=== PATIENT | female | born 1960 | race Caucasian/White ===

== ENCOUNTER 2017-05-03 07:04 | Emergency (ER) | payer MEDICARE, MEDICAID ==
--- NOTE | 2017-05-03 07:37 | ED Physician Chart ---
ED Chief Complaint/HPI - Patient Information Date Seen:: 05/03/17 Time Seen:: 07:35 Chief Complaint:: RIGHT KNEE PAIN AFTER FALL 3 DAYS AGO. History of Present Illness:: THIS 56-YEAR-OLD FEMALE DEVELOPED PAIN IN HER RIGHT KNEE THREE DAYS AGO AFTER FALLING AND INJURING THE KNEE FOUR DAYS AGO. THE PAIN IS RATED 10 OVER 10 SEVERITY. AND IS MADE WORSE BY WEIGHT-BEARING. SHE HAS TRIED [id number] PAIN MEDICINES WITH NO RELIEF SHE DID NOT HEAR ANY SNAPS OR POPS AT THE TIME OF THE FALL.. SHE LOCALIZES THE PAIN TO THE AREA JUST BEYOND THE LOWER MARGIN OF THE PATELLA. Allergies:: Allergies Allergy/AdvReac Type Severity Reaction Status Date / Time No Known Allergies Allergy Verified 05/03/17 07:31 Vitals:: Vital Signs - 8 hr 05/03/17 07:31 Temp 98.3 F HR 96 RR 18 BP 98/57 O2 Sat % 96 Historian:: Patient Family MD/PCP:: : THIS 5 CAME TO THE EMERGENCY DEPARTMENT FOR KNEE PAIN THAT CAME ON THE DAY AFTER A FALL FOUR DAYS AGO. THE PAIN WAS LOCALIZED TO THE LOWER POLE OF THE PATELLA AND DID NOT RADIATE. THE PAIN WAS SEVERE AND RATED A 10 OVER 10 SEVERITY. ON PHYSICAL EXAMINATION THERE WAS NO EFFUSION IN THE REGION OF THE INJURY. NO BRUISING AND NO DEFORMITIES WERE NOTED. PATIENT HAD GOOD DISTAL PULSES AND SENSATION AND MOTOR FUNCTION WERE INTACT. X-RAYS OF THE KNEE SHOWED NO EVIDENCE OF ACUTE TRAUMA. THE KNEE WAS WRAPPED WITH A WILL BANDAGE FOR SUPPORT PATIENT WAS GIVEN A PRESCRIPTION FOR NORCO 7.5/325, DISPENSE 10 CAN USE UP TO EVERY SIX HOURS. SHE WAS PROVIDED WITH THE USUAL CAUTIONS REGARDING THE EXITING THE NORCO WITH ALCOHOL AND TAKING IT WITHIN SIX HOURS OF DRIVING OR ACTIVITIES REQUIRING ALERTNESS. PATIENT WAS STABLE UPON DISCHARGE AND FOLLOW-UP [facility] DDX DRAMATIC KNEE INJURY. NOT CLOSED FRACTURE BASED ON X-RAY STUDY. NOT OPEN FRACTURE BASED ON THE X-RAY AND PHYSICAL EXAMINATION. NOT POSTERIOR DISLOCATION OF THE KNEE BASED ON THE PATIENT'S HISTORY AND LACK OF SWELLING ON PHYSICAL EXAMINATION. NOT HIP FRACTURE BASED ON PHYSICAL EXAMINATION. Review:: Nurse's Note Reviewed ( NURSES TRIAGE NOTES RECORDED ON PAPER BY NURSING.) ED Review of Systems - Review of Systems General/Constitutional: No fever, No chills, No weight loss, No weakness, No diaphoresis, No edema, No loss of appetite Head: No headache, No light-headedness Eyes: Pain, No pain, No diplopia ED Past Medical History - Past Medical History Past Medical History: Other ( SCLERODERMA WITH ASSOCIATED PULMONARY HYPERTENSION. HYPERTENSION. PRIOR HISTORY OF-A FIB.) Social History: Non Smoker, No Alcohol, No Drug Use, , Employed Surgical History: Psychiatricy History: None Family Medical History - Family Member Mother Hx Family Cancer: Yes ED Physical Exam - Physical Examination General/Constitutional: Awake, Well-developed, well-nourished, Alert, No distress, GCS 15, Non-toxic appearing, Ambulatory Head: Atraumatic Eyes: Lids, conjuctiva normal, PERRL ( HORIZONTAL NYSTAGMUS WITH GAZE TO BOTH THE RIGHT AND THE LEFT. SCLERA ARE ANICTERIC.), EOMI ED Labs/Radiology/EKG Results - Lab Results Comments:: A TO VIEW X-RAY STUDY OF THE RIGHT KNEE SHOWED NO TIBIAL PLATEAU FRACTURE NO FRACTURE OF THE FEMUR AND NO FRACTURE OF THE PATELLA. THERE WAS NO SUBLUXATION OF THE PATELLA. NO RADIO OPAQUE FOREIGN BODIES NOTED ED Assessment - Assessment General Assessment: SHE WAS GIVEN THE USUAL PRECAUTIONS REGARDING MIXING THE NORCO WITH ALCOHOL AND NOT TO TAKE IT WITHIN SIX HOURS OF DRIVING HER ACTIVITIES REQUIRING ALERTNESS.: THIS 56-YEAR-OLD FEMALE PRESENTS COMPLAINING OF KNEE PAIN THAT BEGAN A DAY AFTER SHE HAD TAKEN A FALL FOUR DAYS AGO. SHE RATES THE SEVERITY OF THE PAIN A 10 OVER 10 AND SHE WAS BENAIAH UNABLE TO FIND ANY RELIEVING FACTORS INCLUDING [id number] PAIN MEDICATIONS. THE LOCATION OF THE PAIN IS JUST DISTAL TO THE LOWER MARGIN OF THE PATELLA AND HIS NONRADIATING. THERE IS MINIMAL IF ANY SWELLING OF THE KNEE ITSELF AND NO EFFUSION APPEARS TO BE PRESENT. DISTAL VASCULAR, MOTOR FUNCTION AND SENSATION ARE INTACT. A TWO-VIEW X- RAY OF THE RIGHT KNEE SHOWED NO FRACTURES AND NO EVIDENCE OF SUBLUXATION OR FOREIGN BODIES. IN THE EMERGENCY DEPARTMENT THE PATIENT RECEIVED NORCO 7.5/325 AND SHE WAS DISCHARGED WITH A PRESCRIPTION FOR 10 ADDITIONAL PAIN PILLS NORCO 7.5/325. SHE WAS TOLD TO TAKE ONE OR TWO CAPS UP TO EVERY SIX HOURS NEEDED FOR SEVERE PAIN. THE KNEE WAS WILL WRAPPED IN THE EMERGENCY DEPARTMENT AND SHE WAS ADVISED TO FOLLOW UP WITH HER PRIMARY CARE PHYSICIAN THIS COMING WEEK. SHE WAS FURTHER REVISED RETURN TO THE EMERGENCY DEPARTMENT FOR ANY SIGNIFICANT INCREASE IN PAIN, SWELLING OR INSTABILITY. MDMfor ACUTE KNEE INJURY: NOT CLOSED FRACTURE BASED ON NEGATIVE X-RAYS FINDINGS. NOT OPEN FRACTURE BASED ON PHYSICAL EXAMINATION AND NEGATIVE X-RAY FINDINGS. NOT POSTERIOR DISLOCATION OF THE KNEE ITSELF BASED ON THE PATIENT'S HISTORY AND PHYSICAL EXAMINATION OF THE KNEE AND THE DISTAL CIRCULATION. ED Septic Shock - . Is Septic Shock (SBP<90, OR Lactate>4 mmol\L) present?: No - <6hrs of presentation: Vital Signs: Vital Signs - 8 hr 05/03/17 07:31 Temp 98.3 F HR 96 RR 18 BP 98/57 O2 Sat % 96 ED Reassessment (Disposition) - Reassessment Reassessment Condition:: Improved - Diagnosis Diagnosis:: INTERNAL ARRANGEMENT OE THE RIGHT KNEE. SCLERODERMA, HYPERTENSION, PULMONARY HYPERTENSION ED Discharge Plan - Patient Disposition Admit/Discharge/Transfer: PT DISCHARGED HOME Condition at Disposition: Improved Prescriptions: Hydrocodone/Acetaminophen [Bryan 325 mg-7.5 mg*] 1 each PO Q6H PRN 1 Days #5 tablet PRN Reason: Pain (Severe) Instructions: Contusion Accepting Physician: Lu Lynn [Active] -
[2017-05-03] MEDS ORDERED: Hydrocodone/APAP 10 mg/325 mg Tab PO STA (07:59)
[2017-05-03] MEDS ORDERED: Hydrocodone/APAP 10 mg/325 mg Tab ONE (08:03)
--- NOTE | 2017-05-03 09:10 | Diagnostic Imaging Report ---
Right knee 3 views Indication: Trauma Comparison: none Findings: Mild degenerative changes are seen with small distal quadriceps spur. No evidence of an acute fracture. A bone island is seen within the lateral tibial plateau. No joint effusion or focal soft tissue swelling. Impression: No evidence of an acute fracture. In the setting of trauma, if clinical symptoms persist and there is continued concern for an occult fracture, follow up exams in 5-7 days is suggested.
== END 2017-05-03 09:04 | disposition home or self-care (01) ==
LOC: ER 07:04
DX: M23.91 Unspecified internal derangement of right knee (principal); I10 Essential (primary) hypertension; I27.0 Primary pulmonary hypertension; M34.9 Systemic sclerosis, unspecified
CPT/HCPCS: 73562-TC-RT; Z7502